=== PATIENT | male | born 1970 | race Caucasian/White ===

== ENCOUNTER 2018-07-03 04:22 | Emergency (ER) | payer MEDICAID ==
--- NOTE | 2018-07-03 05:12 | ED Physician Chart ---
ED Chief Complaint/HPI - Patient Information Date Seen:: 07/03/18 Time Seen:: 05:00 Chief Complaint:: pain right thigh History of Present Illness:: One and one half weeks ago when patient got out of bed he felt a twinge in his right lateral thigh. He was placed on Bactrim DS 06/25/2018 for the lesion. He complains of right leg pain. Patient has been diaphoretic. Allergies:: Allergies Allergy/AdvReac Type Severity Reaction Status Date / Time No Known Allergies Allergy Verified 07/03/18 04:38 Vitals:: Vital Signs - 8 hr 07/03/18 04:25 Temp 98.1 F HR 104 RR 20 BP 131/60 O2 Sat % 99 Historian:: Patient Review:: Nurse's Note Reviewed ED Review of Systems - Review of Systems General/Constitutional: Other (possible fever) Skin: Skin lesions Head: No headache Eyes: No loss of vision ENT: No earache Neck: No neck pain, No swelling Cardio Vascular: No chest pain, No palpitations Pulmonary: No SOB GI: No nausea, No vomiting, No diarrhea G/U: No dysuria Musculoskeletal: No bone or joint pain Endocrine: No polyuria Psychiatric: No prior psych history Hematopoietic: No bruising Allergic/Immuno: No urticaria Neurological: No syncope ED Past Medical History - Past Medical History Past Medical History: No significant medical hx Family History: None Social History: Non Smoker, No Alcohol Surgical History: other (umbilical hernia repair was) Psychiatricy History: None Medication: Reviewed Family Medical History - Family Member Mother History Unknown: Yes ED Physical Exam - Physical Examination General/Constitutional: Awake, Well-developed, well-nourished, Alert, No distress, GCS 15, Non-toxic appearing, Ambulatory Head: Atraumatic Eyes: Lids, conjuctiva normal, PERRL, EOMI Other Skin comments:: Right lateral thigh: 3 cm of hyperpigmentation of the skin and induration surrounded by about another 3 cm of paler hyperpigmentation with no induration ENMT: External ears, nose nl, Nasal exam nl, Lips, teeth, gums nl Neck: Nontender, Full ROM w/o pain, No JVD, No nuchal rigidity, No bruit, No mass, No stridor Respiratory: Nl effort/Exclusion, Clear to Auscultation, No Wheeze/Rhonchi/Rales Cardio Vascular: RRR, No murmur, gallop, rubs, NL S1 S2 GI: No tenderness/rebounding/guarding, No organomegaly, No hernia, Normal BS's, Nondistended, No mass/bruits, No McBurney tenderness : No CVA tenderness Extremities: No tenderness or effusion, Full ROM, normal strength in all extremities, No edema, Normal digits & nails Neuro/Psych: Alert/oriented, DTR's symmetric, Normal sensory exam, Normal motor strength, Judgement/insight normal, Mood normal, Normal gait, No focal deficits Misc: Normal back, No paraspinal tenderness ED Assessment - Assessment General Assessment: Patient has a small abscess and possible cellulitis right lateral thigh. Incision and drainage would appear to cause more damage than it would be worth. We will give the patient Keflex 500 mg in the emergency department and prescribe a 10 day supply of same to take 1 4 times a day. ED Septic Shock - . Is Septic Shock (SBP<90, OR Lactate>4 mmol\L) present?: No - <6hrs of presentation: Vital Signs: Vital Signs - 8 hr 07/03/18 04:25 Temp 98.1 F HR 104 RR 20 BP 131/60 O2 Sat % 99 ED Reassessment (Disposition) - Reassessment Reassessment Condition:: Unchanged - Diagnosis Diagnosis:: Abscess right thigh - Aftercare/Follow up Instructions Aftercare/Follow-Up Instructions:: Refer to Discharge Instructions Medication Prescribed:: Keflex 500 mg 4 times a day for 10 days - Patient Disposition Discharge/Transfer:: Home Condition at Disposition:: Stable, Unchanged
== END 2018-07-03 05:30 | disposition home or self-care (01) ==
LOC: ER 04:22
DX: L02.415 Cutaneous abscess of right lower limb (principal)
CPT/HCPCS: Z7502; Z7610